=== PATIENT | male | born 1985 | race Caucasian/White ===

== ENCOUNTER 2019-05-04 17:28 | Emergency (ER) | payer MEDICAID, OTHER ==
[~2019-05-04] VITALS: Ht 185.4 cm; Wt 73.3 kg
[2019-05-04 17:30] VITALS: BP 126/87
--- NOTE | 2019-05-04 17:47 | NUR ---
PT HERE FOR RIGHT BUTTOCK ABCESS POST IM DRUG USE. PT HAS HX OF ABCESS TO SITES.
[2019-05-04] MEDS ORDERED: LIDOCAINE-MPF 1%, 5ML ONE (17:53)
[2019-05-04] MEDS ORDERED: LIDOCAINE 1%-EPI 1:100K, 20ML SQ ONE (18:00)
--- NOTE | 2019-05-04 18:46 | NUR ---
Patient/Caregiver given discharge instructions and they have confirmed that they understand the instructions. Patient ambulatory with steady gait.
== END 2019-05-04 18:57 | disposition home or self-care (01) ==
LOC: ED 18:23
DX: L03.317 Cellulitis of buttock (principal); F17.200 Nicotine dependence, unspecified, uncomplicated; Z72.9 Problem related to lifestyle, unspecified
CPT/HCPCS: 10060; 99283

== ENCOUNTER 2020-09-13 14:50 | Emergency (ER) | payer MEDICAID ==
[~2020-09-13] VITALS: Ht 188 cm; Wt 59.5 kg
[2020-09-13 14:53] VITALS: BP 112/77
[2020-09-13] MEDS ORDERED: LIDOCAINE 1%-EPI 1:100K, 20ML SQ ONE (15:00)
--- NOTE | 2020-09-13 16:05 | NUR ---
PLASTIC TOOL MAKER: CALLED FOR ROOM, NO ANSWER
--- NOTE | 2020-09-13 16:20 | NUR ---
STAMP REDEMPTION CLERK: CALLED FOR ROOM, NO ANSWER
--- NOTE | 2020-09-13 16:40 | NUR ---
STAGING TECHNICIAN: CALLED FOR ROOM, NO ANSWER
== END 2020-09-13 16:47 | disposition left against medical advice (07) ==
LOC: ED 16:41
DX: L02.31 Cutaneous abscess of buttock (principal)
CPT/HCPCS: 99281